=== PATIENT | female | born 1930 | race Caucasian/White ===

== ENCOUNTER 2016-08-29 14:35 | Inpatient (IN) | payer OTHER ==
--- NOTE | ~2016-08-29 | HP ---
History And Physical [place] [id number] [facility] [place]. [address] NAME: REJI JEAN : 31 STATUS : ADM IN PAT#: [id number] AGE: 86 ADM/REG DATE : 08/29/16 MR#: [id number] REPORT SERV DATE: 08/30/16 DICTATED BY: BRITTANY RODRIGUEZ DATE: 08/29/16 REPORT STATUS : Draft TRANSCRIBED BY: MODL DATE: 08/29/16 DATE OF ADMISSION: 08/29/2016 HISTORY OF PRESENT ILLNESS: An 86-year-old white female was admitted after she presented to the emergency room probably having a seizure this morning. She has a complicated past medical history, but it is notable that she was thought to have a seizure in May likely related to stroke. She had been placed on Keppra. She had done well. Subsequently, I elected to discontinue Keppra approximate one month ago. In the last few days, she has not been doing well as noted below. The daughter who is visiting from out of town recognized that the patient actually was feeling better this morning when she suddenly developed uncontrolled shaking in her leg and right arm that suddenly seemed to worsen and generalized. Her eyes rolled back into the head, and she was uncommunicative. There was no suggestion of tongue biting or incontinence. Paramedics were summoned and she was brought to the emergency room. Over the last few days, it appears that she has been having speech difficulties, but the family represented by and two daughters give different stories. It is hard to understand whether they were describing dysarthria or confusion, but it seemed to have been worse recently. She has recently been having worsening diarrhea, but her appetite otherwise has been okay. Chronic health history is notable for partial colectomy in April for colon cancer. She has recently seen oncology to evaluate whether there is evidence of need for any further therapy, and her CEA level was markedly elevated. Dr. Sigala has arranged for a PET-CT scan later this week to evaluate for metastatic disease. She has had stroke as mentioned in two locations on MRI noted in 05/2016 and subsequent possible seizure. She has had bilateral carotid endarterectomy and a previous aortic valve replacement. She has had significant problems with failure to thrive. She was hospitalized with pneumococcal bacteremia, treated with one month of Rocephin earlier this year. She has had labile hypertension, Sjogren's disease, depression, chronic anemia, coronary artery disease, above seizure, and chronic diarrhea. CURRENT HOME MEDICATIONS: Verified that include amlodipine 5 mg in the morning, carvedilol 6.25 mg b.i.d., lisinopril 20 mg at night, aspirin 81 mg daily, Plaquenil 200 mg one tablet at bedtime, Cymbalta 30 mg daily, Metamucil taken daily in tablet form, omeprazole 20 mg daily, potassium 10 mEq daily, and probiotic daily. SOCIAL HISTORY: She does not smoke or drink. She lives with her . REVIEW OF SYSTEMS: The patient really can't give me much of a story. There has been a lot of emotional anxiety related to the colon cancer evaluation and several other family dynamic issues. There are no reports of fevers or chills. No recognized vomiting, has been variably suggest dyspnea. History And Physical [address] [address] NAME: REJI JEAN : 31 STATUS : ADM IN [facility]#: [id number] AGE: 86 ADM/REG DATE : 08/29/16 MR#: [id number] REPORT SERV DATE: 08/30/16 DICTATED BY: BRITTANY RODRIGUEZ DATE: 08/29/16 REPORT STATUS : Draft TRANSCRIBED BY: JUNAID DATE: 08/29/16 No recognized cardiac awareness. No recent falls. No bleeding. Review of systems is otherwise limited by the patient's presentation. PHYSICAL EXAMINATION: GENERAL: She presents with a blood pressure 160/60. She is afebrile. She appears to be in a sinus rhythm. She has her eyes closed which is not uncommon. She is oriented to her surroundings, responds appropriate to my questions and follow all commands. Her speech is dysarthric. Content is appropriate. There was some left facial weakness suggested. She seemed to have adequate hand union contract representative bilaterally and lower extremity weakness is not localizing. HEENT: Otherwise reveals midline tongue to protrusion. Carotid scars are intact. LUNGS: Clear. HEART: Regular. There was no ectopy. There was no abdominal tenderness, mass, or guarding. Midline incision and wound has healed well. EXTREMITIES: Bruises, but no edema. LABORATORY STUDIES: Studies to date include a CT scan which is nonacute in the brain. BNP normal. Chest x-ray showed unremarkable for acute change. White count 4600, hemoglobin 11.9, hematocrit 34.8, which is pretty good for her, platelets 112,000. Chemistries only noted a BUN 28, creatinine of 0.96, magnesium of 1.5. A troponin borderline elevated at 0.09. Urinalysis is pending. IMPRESSION: 1. Probable seizure in a woman who is currently off Keppra for the last month and a prior history of seizure related to strokes. 2. Dysarthria? Stroke? Postictal state. 3. Colon cancer with hemicolectomy 05/2016 and elevated CEA being evaluated for metastatic disease. Presenting CT scan shows no obvious mets or bleed. 4. Diarrhea, acute on chronic. 5. Cerebral vascular disease with prior history of stroke and bilateral carotid endarterectomies. 6. Coronary artery disease, prior bypassing. 7. Prior aortic valve replacement. 8. Sjogren syndrome. 9. Chronic anxiety and depression. 10.Chronic anemia. 11.History of pneumococcal bacteremia, previously treated. 12.Episodic recurrent urinary tract infections. PLAN: The patient will be admitted to a monitored bed. She has been started on Keppra. We will set her up for an MRI of the brain with and without contrast to see if there is any evidence of new stroke and do an EEG. Labs will be followed. We will do surveillance blood cultures. We will ask Dr. Sigala to comment on the evaluation regarding the colon cancer status. My previous discussion with the patient; do not resuscitate, do not intubate. History And Physical [address] [address] NAME: REJI JEAN : 31 STATUS : ADM IN PAT#: [id number] AGE: 86 ADM/REG DATE : 08/29/16 MR#: [id number] REPORT SERV DATE: 08/30/16 DICTATED BY: BRITTANY RODRIGUEZ DATE: 08/29/16 REPORT STATUS : Draft TRANSCRIBED BY: JUNAID DATE: 08/29/16 ORESTES/JUNAID Brittany Rodriguez M.D. / [id number] CC: Brittany Rodriguez M.D.
--- NOTE | ~2016-08-29 | DS ---
Discharge Summary [place] [address] [facility] [place]. [address] NAME: REJI JEAN : 32 STATUS : DIS IN PAT#: [id number] AGE: 86 ADM/REG DATE : 08/29/16 MR#: [id number] REPORT SERV DATE: 09/02/16 DICTATED BY: BRITTANY RODRIGUEZ DATE: 09/01/16 REPORT STATUS : Draft TRANSCRIBED BY: MODL DATE: 09/01/16 ADMISSION DATE: 08/29/2016 DISCHARGE DATE: 09/01/2016 ADMITTING DIAGNOSIS: Seizure. DISCHARGE DIAGNOSES: 1. Multiple cerebral embolic strokes. 2. 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 3. Prior history of strokes. 4. Colon cancer with elevated CEA. 5. Hypertension. 6. Cerebrovascular disease with prior bilateral carotid endarterectomies. 7. Hypertension. 8. Prior history of aortic valve replacement. 9. Fibromyalgia. 10.Sjogren's. DISPOSITION: The patient was discharged to the care of [facility]. DISCHARGE MEDICATIONS: Aspirin was discontinued and she was on Plavix 75 mg daily. She will continue amlodipine 5 mg daily, carvedilol 6.25 mg b.i.d., Plavix 75 mg a day was started, Cymbalta 30 mg daily, FiberCon two tablets b.i.d., Plaquenil 200 mg daily, Keppra 500 mg b.i.d., lisinopril 20 mg daily, potassium 10 mEq daily, probiotic daily, Lomotil p.r.n. for diarrhea, omeprazole 20 mg daily. HOSPITAL SUMMARY: An 86-year-old white female presented to the emergency room, having a seizure on the day of admission, witnessed by family. For several days, she seemingly was deteriorating with speech deficits, which seemed to be coming and going. In the emergency room, she was dysarthric and lethargic, and it was unclear whether she had, had stroke or was postictal. The patient's pertinent health history is notable for colon cancer resection in the fall of 2015, recently being evaluated by Oncology, where she was found to have a markedly elevated CEA. She was being setup for an outpatient CT/PET scan to define the clinical status. She had, had prior history of stroke and seizures in the fall, and multiple hospitalizations related to recovery from her cancer surgery, seizure, stroke, pneumococcal bacteremia, and other medical problems. LABORATORY DATA: Admission white count was 4600, hemoglobin 11.9, hematocrit 34.8, INR 1.2. Sodium 139, potassium 4.9, BUN 28, creatinine 0.96. Liver function tests were normal. BNP 61. Troponins were mildly elevated. Initial CT scan of the brain showed no acute findings with only a moderate atrophy and chronic white matter changes and with no hemorrhage. Discharge Summary [address] [address] NAME: REJI JEAN : 32 STATUS : DIS IN PAT#: [id number] AGE: 86 ADM/REG DATE : 08/29/16 MR#: [id number] REPORT SERV DATE: 09/02/16 DICTATED BY: BRITTANY RODRIGUEZ DATE: 09/01/16 REPORT STATUS : Draft TRANSCRIBED BY: JUNAID DATE: 09/01/16 An MRI of the brain revealed multiple small foci of acute and subacute ischemic lesions compatible with shower emboli involving both sides of midline in the posterior fossa as well as in the left posterior frontal area some of which were probably as recently as two weeks ago. There were significant right vertebral stenosis and mild carotid stenosis bilaterally. Echocardiogram was unremarkable. The patient was admitted with seizure. She has had a seizure related to stroke several months ago, and as an outpatient, I had discontinued Keppra about a month before. She was seen in consultation by Neurology. MRI showed a remarkable splattering of emboli to multiple areas in the brain. This was all while she was on good blood pressure control and aspirin therapy. Within the last few months, she had had a SUHA, carotid ultrasound, and other medical evaluations. Neurology felt that it was unsafe to heparinize her due to risk of converting the bland strokes to hemorrhagic strokes. It was my opinion that the patient had had a full and thorough evaluation over the last month, and that there was no real good reason to put her through further investigations and that the comfort measures would probably be most appropriate. Hospice was discussed and the family was willing to sign on with hospice. The patient's #1 goal at this point was to go home and be with family, and to be comfortable. Keppra was restarted. Aspirin was switched to Plavix, and she was stable at the time of discharge. Medical expectations was that she would not survive over six months. She was discharged in the care of family with hospice followup with [facility]. ORESTES/JUNAID Brittany Rodriguez M.D. / [id number] CC: Arlen Howard M.D.
--- NOTE | ~2016-08-29 | CN ---
Consultation Report [facility] [address] [place]. [address] NAME: REJI JEAN : 32 STATUS : ADM IN PAT#: [id number] AGE: 86 ADM/REG DATE : 08/29/16 MR#: [id number] REPORT SERV DATE: 08/30/16 DICTATED BY: TRI LOPEZ DATE: 08/30/16 REPORT STATUS : Draft TRANSCRIBED BY: MODL DATE: 08/30/16 NEUROLOGY CONSULTATION DATE OF CONSULTATION: 08/30/2016 REASON FOR CONSULTATION: Stroke and/or seizure. HISTORY OF PRESENT ILLNESS: The patient is an 86-year-old female, who was sitting at the table drinking coffee yesterday at approximately 11:30 a.m. She was speaking with her daughter and suddenly she kicked off her slippers and started "shaking all over." During this episode she was trying to speak and was still awake. But she eventually did lose consciousness after two to three seconds. Her daughter cleared the area and later down on the floor. Her called 911 and by the time the paramedics/pricing director arrive, the patient was not communicating. According to the the episode lasted approximately 15 minutes. She was brought to [facility] for further evaluation and treatment. She was not incontinent of urine, but did bite the side of her tongue. The patient was on Keppra twice a day for seizure activity which was secondary to stroke. She was taken off her Keppra approximately a month ago. PAST MEDICAL HISTORY: Stroke x2 with secondary seizure activity recently taken off Keppra, chronic UTI, Sjogren's, fibromyalgia, anxiety, depression, insomnia, irritable bowel syndrome, right UPJ obstruction, chronic blepharospasm, remote tobacco abuse, hypertension, coronary artery disease, bilateral carotid disease, cecal carcinoma, cervical carcinoma with radiation. PAST SURGICAL HISTORY: Coronary artery bypass grafting, aortic valve replacement, bilateral carotid endarterectomies, cholecystectomy, total abdominal hysterectomy, bilateral cataract extraction with lens implantation, appendectomy, arthroscopic knee surgery, and lumbar diskectomy. HOME MEDICATIONS: Norvasc 5 mg daily, aspirin 81 mg daily, FiberCon daily, Coreg 6.25 mg twice a day, Cymbalta 30 mg daily, Plaquenil 200 mg every day at bedtime, Prinivil 20 mg daily at bedtime, probiotic daily, Prilosec 20 mg daily at bedtime, and potassium chloride 10 mEq daily. ALLERGIES: CODEINE, HYDROCODONE, PHENERGAN, AND LIPITOR. SOCIAL HISTORY: The patient is . She lives with her . She has seven children by her previous . She is a remote smoker. She does not drink alcohol or use illicit drugs. FAMILY HISTORY: The patient's mother of a stroke. She has no medical history on her father. She has one brother and three sisters. Consultation Report [place] [address] [place]. [address] NAME: REJI JEAN : 32 STATUS : ADM IN PAT#: [id number] AGE: 86 ADM/REG DATE : 08/29/16 MR#: [id number] REPORT SERV DATE: 08/30/16 DICTATED BY: TRI LOPEZ DATE: 08/30/16 REPORT STATUS : Draft TRANSCRIBED BY: JUNAID DATE: 08/30/16 REVIEW OF SYSTEMS: For pertinent positives please see HPI. PHYSICAL EXAMINATION: VITAL SIGNS: The patient is an 86-year-old female, who stands 5 feet 1 inch tall and weighs 121 pounds. She is afebrile. Heart rate 84, respiratory rate 22, O2 saturations on room air 95%, and blood pressure 156/70. NEURO: The patient is drowsy, but she will awaken to verbal and noxious stimuli. She is severely dysarthric. No aphasia. Pupils are 3 mm. PERRLA. EOMs are intact. It is difficult to determine her exact field of peripheral vision. The patient is poor hansard reporter, but peripheral vision seems to be intact. Left facial droop. Left tongue deviation. No reported sensory deficits in the trigeminal region. She can move all extremities x4. She does demonstrate ataxia with [id number] in both hands more so on the right than the left. The patient is uncoordinated and has difficulty with pronator drift. Right arm tends to drift over toward to the left. Upper extremity strength is 4/5 bilaterally. No reported sensory deficits. Upper DTRs are 2+ bilaterally. Lower extremity strength is 4/5 bilaterally. Patellar reflexes 2+ bilaterally. Downgoing toes on the left. Upgoing toes on the right. No reported sensory deficits. No sensory extinction. NECK: No carotid bruits, JVD, or thyromegaly. CHEST: Lung sounds are clear. Diminished on the right. No cough. CARDIAC: Regular rate and rhythm LABORATORY DATA: CBC shows a platelet count of 98. BMP is normal. Troponins are elevated, last troponin was 0.36. Chest x-ray, no acute changes, but elevated right hemidiaphragm. CT of the brain, no acute changes. NIH stroke scale is 7. ASSESSMENT/PLAN: 1. Reported seizure activity yesterday, the patient will be started on Keppra 1000 mg IV q.12 hours. She will be placed on seizure precautions. An EEG will be done and she will be placed on Ativan 1 mg IV p.r.n. seizure activity only. 2. Possible new stroke. The patient does have a history of strokes. An MRI of the brain with and without gadolinium will be done along with an MRA of the head and neck. She will be placed on aspirin 325 mg daily, plus Crestor 5 mg p.o. at bedtime. Physical Therapy and Occupational Therapy will be consulted. A bedside dysphagia screen will be done if she fails this, and Speech Therapy will be consulted. Case Management will be consulted for rehab placement. An additional lab work will be checked. 3. Thrombocytopenia, this will be managed per primary care physician and for the patient is a do not resuscitate. Thank you again for including us in consultation. We will continue to follow with you. SANDRA/JUNAID Consultation Report [address] [place]. [address] NAME: REJI JEAN : 32 STATUS : ADM IN [facility]#: [id number] AGE: 86 ADM/REG DATE : 08/29/16 MR#: [id number] REPORT SERV DATE: 08/30/16 DICTATED BY: TRI LOPEZ DATE: 08/30/16 REPORT STATUS : Draft TRANSCRIBED BY: JUNAID DATE: 08/30/16 CHRIS Gautam-BC / [id number] CC: Carlo Rodriguez M.D.
[2016-08-29 14:01] LABS: BASOPHILS 0.4 %; BASOPHILS ABSOLUTE 0.02 10/3/uL (0.0-0.16); EOSINOPHILS 5.5 %; EOSINOPHILS ABSOLUTE 0.25 10/3/uL (0.0-0.53); ER CBC TAT 0 Hrs 03 Mins; HEMATOCRIT 34.8 % (36.0-48.0); HEMOGLOBIN 11.9 g/dL (12.0-16.0); IMMATURE GRANULOCYTES 0.2 %; IMMATURE GRANULOCYTES ABSOLUTE 0.01 10/3/uL (0.0-0.11); LYMPHOCYTES 28.2 %; LYMPHOCYTES ABSOLUTE 1.29 10/3/uL (0.67-4.30); MEAN CORPUSCULAR HEMOGLOB 29.1 pg (26.0-34.0); MEAN PLATELET VOLUME 10.1 fL (9.2-13.0); MONOCYTES 7.9 %; MONOCYTES ABSOLUTE 0.36 10/3/uL (0.21-1.20); NEUTROPHILS 57.8 %; NEUTROPHILS ABSOLUTE 2.65 10/3/uL (2.02-8.40); PLATELET COUNT 112 10/3/uL (150-400); RBC DISTRIBUTION WIDTH 13.3 % (12.0-16.0); RED CELL COUNT 4.09 10/6/uL (4.0-5.6); WHITE BLOOD CELLS 4.6 10/3/uL (4.5-10.5)
[2016-08-29 14:02] LABS: MANUAL DIFF NO %; MEAN CORPUS HGB CONC 34.2 g/dL (32.0-36.0); MEAN CORPUSCULAR VOLUME 85.1 fL (80-100)
[2016-08-29 14:09] LABS: INTERNATIONAL NORMAL RATI 1.2 UNITS (-); PROTIME (NOT ORD) 15.5 SEC (12.0-14.5)
[2016-08-29 14:17] LABS: BUN (BLOOD UREA NITROGEN) 28 MG/DL (6-23); CALCIUM, SERUM 9.1 MG/DL (8.5-10.4); CHEST PAIN PROFILE TAT 0 Hrs 19 Mins; CHLORIDE, SERUM 106 MMOL/L (96-112); CO2 (CARBON DIOXIDE) 25 MMOL/L (24-34); CREATININE 0.96 MG/DL (0.55-1.02); GFR AFRICAN AMERICAN 63 ML/MIN (>=60); GFR NON AFRICAN AMERICAN 54 ML/MIN (>=60); GLUCOSE, SERUM 115 MG/DL (60-99); POTASSIUM, SERUM 4.9 MMOL/L (3.5-5.3); SODIUM, SERUM 138 MMOL/L (135-148); TROPONIN I 0.09 NG/ML (<0.05)
[~2016-08-29 14:35] MED LIST: ACET500CAP PO; AMB5 PO; ASA5GR PO; ASAB PO; CALTRA600D PO; COREG12 PO; COREG6 PO; CYMBALTA30 PO; CYMBALTA60 PO; FIBER PO; FIBERCON PO; HALF81 PO; IRON325 MG PO; KDUR10 PO; KEPPRA250 PO; KLOR-CON M1010 MEQ PO; LIPITOR40 PO; LOM PO; LOP25 PO; LOPID6 PO; LORAZEPAM OR; METPAKSF PO; MULTIVIT/MIN PO; NORCO1 TA1 PO; NORV5 PO; OTC PROBIOTIC PO; PLAQ200B PO; PR12.5 PO; PRILO PO; PRILOSEC OTC20 MG PO; PRIN10 PO; PRIN20 PO; PROBIOTIC PO; PROTONIX PO; PROTONIX20 MG PO; REFRESH OPH SO0.3 ML OPH; TEARS NATURA OPH; VICODINTAB PO; VITAMIN C100 M1 PO; VITC500 PO; ZESTRIL20 MG PO; [UNRECOGNIZED DRUG - OTHER] PO
[2016-08-29 20:47] LABS: ALBUMIN 4.1 G/DL (3.5-5.0); ALKALINE PHOSPHATASE 84 U/L (45-117); DIRECT BILIRUBIN 0.1 MG/DL (0.0-0.4); INDIRECT BILIRUBIN(NOT ORDER) 0.4 MG/DL (0.1-0.9); SGOT(AST) 28 U/L (5-40); SGPT(ALT) 18 U/L (5-65); TOTAL BILIRUBIN 0.5 MG/DL (0-1.2); TOTAL PROTEIN 7.6 G/DL (6.0-8.5)
[2016-08-29 22:36] LABS: CK-MB 1.5 NG/ML; CPK 57 U/L (0-200); TROPONIN I 0.12 NG/ML (<0.05)
[2016-08-30 05:58] LABS: BASOPHILS 0 %; EOSINOPHILS 0 %; HEMOGLOBIN 10.7 g/dL (12.0-16.0); IMMATURE GRANULOCYTES 0.2 %; IMMATURE GRANULOCYTES ABSOLUTE 0.01 10/3/uL (0.0-0.11); LYMPHOCYTES 19.9 %; MEAN CORPUS HGB CONC 34.3 g/dL (32.0-36.0); MEAN CORPUSCULAR HEMOGLOB 29.2 pg (26.0-34.0); MEAN PLATELET VOLUME 10.2 fL (9.2-13.0); MONOCYTES 3.5 %; MONOCYTES ABSOLUTE 0.14 10/3/uL (0.21-1.20); NEUTROPHILS 76.4 %; NEUTROPHILS ABSOLUTE 3.07 10/3/uL (2.02-8.40); PLATELET COUNT 98 10/3/uL (150-400); RBC DISTRIBUTION WIDTH 12.8 % (12.0-16.0); RED CELL COUNT 3.67 10/6/uL (4.0-5.6)
[2016-08-30 05:59] LABS: HEMATOCRIT 31.2 % (36.0-48.0); MANUAL DIFF NO %
[2016-08-30 06:16] LABS: BUN (BLOOD UREA NITROGEN) 26 MG/DL (6-23); CHLORIDE, SERUM 110 MMOL/L (96-112); CO2 (CARBON DIOXIDE) 23 MMOL/L (24-34); CREATININE 0.79 MG/DL (0.55-1.02); GFR AFRICAN AMERICAN 79 ML/MIN (>=60); GFR NON AFRICAN AMERICAN 68 ML/MIN (>=60); GLUCOSE, SERUM 116 MG/DL (60-99); POTASSIUM, SERUM 4.3 MMOL/L (3.5-5.3); SODIUM, SERUM 143 MMOL/L (135-148)
[2016-08-30 06:17] LABS: CALCIUM, SERUM 8.8 MG/DL (8.5-10.4)
[2016-08-30 06:23] LABS: CPK 60 U/L (0-200)
[2016-08-30 06:28] LABS: CK-MB 2.3 NG/ML; TROPONIN I 0.36 NG/ML (<0.05)
[2016-08-30 12:06] LABS: ALBUMIN 3.3 G/DL (3.5-5.0); CHOL/HDL RATIO(NOT ORDER) 3.2 (0-5); DIRECT BILIRUBIN 0.1 MG/DL (0.0-0.4); FOLATE 61.5 NG/ML (>5.2); FREE T4 0.95 NG/DL (0.76-1.46); INDIRECT BILIRUBIN(NOT ORDER) 0.2 MG/DL (0.1-0.9); TOTAL BILIRUBIN 0.3 MG/DL (0-1.2); TOTAL PROTEIN 6.2 G/DL (6.0-8.5); ULTRASENSITIVE TSH 0.447 MCIU/ML (0.358-3.740)
[2016-08-30 12:09] LABS: PROLACTIN 9.6 NG/ML
[2016-08-30 13:40] LABS: GLYCOHEMOGLOBIN (HbA1c) 5.4 % (4.7-6.1)
[2016-08-31 06:26] LABS: BASOPHILS 0.4 %; BASOPHILS ABSOLUTE 0.02 10/3/uL (0.0-0.16); EOSINOPHILS 2.4 %; EOSINOPHILS ABSOLUTE 0.12 10/3/uL (0.0-0.53); HEMATOCRIT 29.7 % (36.0-48.0); HEMOGLOBIN 10.1 g/dL (12.0-16.0); LYMPHOCYTES ABSOLUTE 1.62 10/3/uL (0.67-4.30); MANUAL DIFF NO %; MEAN CORPUSCULAR HEMOGLOB 28.9 pg (26.0-34.0); MEAN CORPUSCULAR VOLUME 84.9 fL (80-100); MEAN PLATELET VOLUME 10.7 fL (9.2-13.0); MONOCYTES 5.1 %; MONOCYTES ABSOLUTE 0.26 10/3/uL (0.21-1.20); NEUTROPHILS 60.1 %; NEUTROPHILS ABSOLUTE 3.05 10/3/uL (2.02-8.40); PLATELET COUNT 93 10/3/uL (150-400); RBC DISTRIBUTION WIDTH 13.3 % (12.0-16.0); WHITE BLOOD CELLS 5.1 10/3/uL (4.5-10.5)
[2016-08-31 06:40] LABS: CALCIUM, SERUM 9.3 MG/DL (8.5-10.4); CHLORIDE, SERUM 108 MMOL/L (96-112); CO2 (CARBON DIOXIDE) 25 MMOL/L (24-34); CREATININE 0.79 MG/DL (0.55-1.02); GFR AFRICAN AMERICAN 79 ML/MIN (>=60); GFR NON AFRICAN AMERICAN 68 ML/MIN (>=60); GLUCOSE, SERUM 97 MG/DL (60-99); POTASSIUM, SERUM 4.1 MMOL/L (3.5-5.3); SODIUM, SERUM 141 MMOL/L (135-148)
[2016-08-31 06:41] LABS: BUN (BLOOD UREA NITROGEN) 19 MG/DL (6-23)
== END 2016-09-01 12:12 | disposition hospice, home (50) | DRG 65 ==
LOC: ER 14:35 → 7NO 17:45
PROVIDERS: Emergency Medicine; Internal Medicine; Nurse Practitioner
DX: I63.432 Cerebral infarction due to embolism of left posterior cerebral artery (principal); C18.9 Malignant neoplasm of colon, unspecified; D61.818 Other pancytopenia; D69.6 Thrombocytopenia, unspecified; R56.9 Unspecified convulsions; F41.9 Anxiety disorder, unspecified; F32.9 Major depressive disorder, single episode, unspecified; M35.00 Sjogren syndrome, unspecified; M79.7 Fibromyalgia; I10 Essential (primary) hypertension; Z51.5 Encounter for palliative care; Z66 Do not resuscitate; R27.0 Ataxia, unspecified; R47.1 Dysarthria and anarthria; I69.398 Other sequelae of cerebral infarction; Z68.22 Body mass index [BMI] 22.0-22.9, adult; Z87.891 Personal history of nicotine dependence; Z87.440 Personal history of urinary (tract) infections; Z85.038 Personal history of other malignant neoplasm of large intestine; Z92.3 Personal history of irradiation; Z95.1 Presence of aortocoronary bypass graft; Z90.49 Acquired absence of other specified parts of digestive tract; Z90.710 Acquired absence of both cervix and uterus; Z95.2 Presence of prosthetic heart valve; Z93.3 Colostomy status
CPT/HCPCS: 70470; 70544; 70548; 70553; 71010; 80048; 80061; 80076; 81001; 82140; 82306; 82533; 82550; 82553; 82607; 82746; 83036; 83735; 83880; 84146; 84439; 84443; 84484; 85025; 85610; 85730; 87040; 87328; 87329; 87493; 87493-59; 89055; 92610-GN; 93005; 93306; 96374; 96375; 99291; A9270-GY; A9577; J1953; J2405; Q9967